=== PATIENT | female | born 1985 | race Caucasian/White ===

== ENCOUNTER 2024-02-25 05:28 | Inpatient (IN) | payer OTHER ==
[2024-02-25] MEDS ORDERED: fentaNYL 50 mcg/mL 1 mL Vial SLOW IVP PRN (05:43)
[2024-02-25] MEDS ORDERED: Ibuprofen 800 MG TAB PO PRN (05:43)
[2024-02-25] MEDS ORDERED: Misoprostol 200 MCG TAB PR PRN (05:43)
[2024-02-25] MEDS ORDERED: hydrALAZINE 20 MG/ML VIAL SLOW IVP PRN ×2 (05:43→15:16)
[2024-02-25] MEDS ORDERED: HYDROcodone/Acetaminophen 5/325 mg Tablet PO PRN ×2 (05:43)
[2024-02-25] MEDS ORDERED: Oxytocin 30 units/NS 500 ML 500 ML IV SCH (05:43)
[2024-02-25] MEDS ORDERED: Tranexamic Acid 1,000 MG/10 ML VIAL IVP PRN (05:43)
[2024-02-25] MEDS ORDERED: Methylergonovine 0.2 MG/ML VIAL IM PRN (05:43)
[2024-02-25] MEDS ORDERED: Promethazine HCl 25 MG/ML VIAL IM PRN ×2 (05:43→09:13)
[2024-02-25] MEDS ORDERED: Lidocaine 1% (PF) 30 ML VIAL SC PRN (05:43)
[2024-02-25] MEDS ORDERED: Ondansetron PF 4 MG/2 ML Vial IVP PRN ×2 (05:43→09:13)
[2024-02-25] MEDS ORDERED: Acetaminophen 500 MG TAB PO PRN (05:43)
[2024-02-25] MEDS ORDERED: Carboprost 250 MCG/ML AMP IM PRN (05:43)
[2024-02-25] MEDS ORDERED: Famotidine/PF 20 mg/2ml Vial SLOW IVP PRN (05:43)
[2024-02-25] MEDS ORDERED: Bicitra 30 ML UDCUP PO PRN (05:43)
[2024-02-25] MEDS ORDERED: Diphenoxylate HCl/Atropine Tablet PO PRN ×2 (05:43)
[2024-02-25] MEDS: Lactated Ringer's 1,000 ML IV SCH (06:15)
[2024-02-25 06:26] VITALS: BMI 38.9
[2024-02-25 06:33] LABS: Hematocrit 39.4 % (34.9-44.5); Hemoglobin 14.1 g/dL (12.0-15.5); Mean Corpuscular HGB CONC 35.8 g/dL (32.0-36.0); Mean Corpuscular Hemoglobin 29.5 pg (27.0-33.0); Mean Corpuscular Volume 82.4 fL (81.6-98.3); Mean Platelet Volume 10.2 fL (7.4-10.4); Platelet Count 297 10x3/uL (150-450); RBC Distribution Width 13.8 % (11.5-14.5); Red Blood Cell (RBC) Count 4.78 10x6/uL (3.90-5.03); White Blood Cell (WBC) Count 12.8 10x3/uL (3.5-10.5)
[2024-02-25] MEDS: Oxytocin 30 units/NS 500 ML 500 ML IV SCH (06:38)
[2024-02-25 07:01] LABS: Syphilis Antibody Nonreactive (Nonreactive); Syphilis Antibody Index 0.03 S/CO (<1.00 Non-Reactive)
[2024-02-25 07:05] LABS: HBsAg Index 0.22 S/CO (0-0.99); Hep B Surf Ag - L&D Non-Reactive S/CO (NonReactive)
[2024-02-25 07:09] LABS: HIV (1/2) Antibody/Antigen Non-Reactive (NonReactive); HIV 1/2 INDEX 0.12 S/CO (<1.00)
[2024-02-25] MEDS ORDERED: Bupivacaine/Epinephrine 0.25% 30 ML VIAL ONE (08:00)
[2024-02-25] MEDS ORDERED: Lactated Ringer's 500 ML IV PRN (09:13)
[2024-02-25] MEDS ORDERED: Acetaminophen 325 MG TAB PO PRN (09:13)
[2024-02-25] MEDS ORDERED: Moisturizing Cream (Eucerin) 113 GM JAR TOP PRN (09:13)
[2024-02-25] MEDS ORDERED: Naloxone HCl 0.4 mg/ml Vial IVP PRN ×2 (09:13)
[2024-02-25] MEDS ORDERED: diphenhydrAMINE 50 MG/ML VIAL IVP PRN (09:13)
[2024-02-25] MEDS ORDERED: Communication Order-Pharmacy FS SCH (09:15)
[2024-02-25] MEDS: fentaNYL 2 mcg/Ropivacaine 0.2% Epidural 100 ML CADD EPIDURAL SCH (09:41)
[2024-02-25] MEDS: ePHEDrine Sulfate 50 MG/10 ML VIAL SLOW IVP PRN (09:53)
[2024-02-25] MEDS ORDERED: Milk Of Magnesia 30 ML UDCUP PO PRN (15:16)
[2024-02-25] MEDS ORDERED: Bisacodyl 10 MG SUPP PR PRN (15:16)
[2024-02-25] MEDS ORDERED: Lanolin Ointment 7 GM TUBE TOP PRN (15:16)
[2024-02-25] MEDS ORDERED: diphenhydrAMINE 25 MG CAP PO PRN (15:16)
[2024-02-25] MEDS ORDERED: Preparation H Ointment 28 GM TUBE PR PRN (15:16)
[2024-02-25] MEDS: Ferrous Sulfate 325 MG TAB PO SCH (17:30)
[2024-02-25] MEDS: fentaNYL/Ropivacaine Epidural 100 ML ONE (17:30)
[2024-02-25] MEDS: Boostrix 0.5 ML (Tdap) VIAL (>/=7 yrs of age) IM ONE (17:30)
[2024-02-25] MEDS: traMADol HCl 50 MG TAB PO PRN (18:39)
[2024-02-25] MEDS: Ibuprofen 800 MG TAB PO SCH (22:21)
[2024-02-25] MEDS: Docusate 100 MG CAP PO SCH (22:21)
[2024-02-25] MEDS: Benzocaine-Menthol 82.5 ML CAN TOP PRN (22:24)
[2024-02-26] MEDS: Prenatal Vitamin 1 TAB PO SCH (07:51)
[2024-02-26 11:11] VITALS: BP 120/74; TEMP 97.5
== END 2024-02-26 17:00 | disposition home or self-care (01) | DRG 807 ==
LOC: CSHLD 05:28 → CSHPP 17:05
PROVIDERS: ADMIT Obstetrics & Gynecology; ATTEND Obstetrics & Gynecology
PROC: 10E0XZZ Delivery of Products of Conception, External Approach (ICD-10-PCS; principal; 2024-02-25)
PROC: 0KQM0ZZ Repair Perineum Muscle, Open Approach (ICD-10-PCS; 2024-02-25)
DX: O09.523 Supervision of elderly multigravida, third trimester (principal); Z37.0 Single live birth; Z3A.39 39 weeks gestation of pregnancy; O70.1 Second degree perineal laceration during delivery; Z79.82 Long term (current) use of aspirin; O99.824 Streptococcus B carrier state complicating childbirth
CPT/HCPCS: 51702; 85027; 86780; 86850; 86900; 86901; 87340; 87389; J2590; J7120